=== PATIENT | female | born 1985 | race Caucasian/White ===

== ENCOUNTER 2017-10-09 01:17 | Emergency (ER) | payer MEDICAID ==
[~2017-10-09] VITALS: Ht 175.3 cm; Wt 67.1 kg
[2017-10-09 04:35] VITALS: BP 122/69
== END 2017-10-09 05:30 | disposition home or self-care (01) ==
LOC: ER 01:30
DX: T58.91XA Toxic effect of carbon monoxide from unspecified source, accidental (unintentional), initial encounter (principal); Y92.89 Other specified places as the place of occurrence of the external cause
CPT/HCPCS: 36600; 82805